=== PATIENT | female | born 1995 | race Two or more races ===

== ENCOUNTER 2023-11-27 21:06 | Emergency (ER) | payer SELFPAY ==
[~2023-11-27] VITALS: Ht 160 cm; Wt 55.0 kg
[2023-11-27 21:17] VITALS: O2SAT 99
[2023-11-27] MEDS ORDERED: IBUP-2029 MT (23:47)
[2023-11-27] MEDS ORDERED: METH-653 MT (23:47)
[2023-11-28] MEDS: METHOCARBAMOL 500MG TABLET PO ONE
[2023-11-28] MEDS: IBUPROFEN 600MG TABLET PO ONE
[2023-11-28 00:07] VITALS: BP 121/69; PULSE 84; RESP 20; TEMP 98.3
== END 2023-11-28 00:15 | disposition home or self-care (01) ==
LOC: ER 21:06
DX: S09.8XXA Other specified injuries of head, initial encounter (principal); J45.909 Unspecified asthma, uncomplicated; X58.XXXA Exposure to other specified factors, initial encounter; Y93.89 Activity, other specified; Y92.89 Other specified places as the place of occurrence of the external cause; Y99.8 Other external cause status
CPT/HCPCS: 70450; 99284; Z7610